=== PATIENT | female | born 1985 | race Caucasian/White ===

== ENCOUNTER 2020-09-18 12:26 | Inpatient (IN) | payer MEDICAID, SELFPAY ==
[2020-09-18] VITALS (38 sets, daily range): BP systolic 106–188; BP diastolic 63–88; PULSE 80–111; RESP 17–18; TEMP 36.4–37.1; O2SAT 87–100; BMI 37.0
[2020-09-18] MEDS: oxytocin 30 UNIT/500 ML BAG IV (13:57)
[2020-09-18] MEDS: dextrose 5%-lactated ringers 1,000 ML 125 ML IV (13:57)
[2020-09-18 14:19] LABS: Basophils # 0.1 10^3/uL (0.0-0.1); Basophils % 0.5 %; Eosinophils # 0.1 10^3/uL (0.0-0.8); Eosinophils % 1.1 %; Hematocrit 31.3 % (37.0-47.0); Hemoglobin 9.6 g/dL (11.5-15.3); Lymphocytes # 2.2 10^3/uL (0.8-4.8); Lymphocytes % 18.2 %; Mean Corpuscular HGB Conc 30.7 g/dL (30.0-36.0); Mean Corpuscular Hemoglobin 23.9 pg (28.0-34.0); Mean Corpuscular Volume 77.9 fL (81-99); Mean Platelet Volume 11.8 fL (7.4-10.4); Monocytes # 0.8 10^3/uL (0.2-0.9); Monocytes % 6.9 %; Neutrophils # 8.51 10^3/uL (1.8-7.7); Neutrophils % 71.9 %; Nucleated Red Blood Cells % 0 %; Platelet Count 244 10^3/cmm (130-400); Red Blood Count 4.02 10^6/uL (4.1-5.3); Red Cell Distribution Width 15.6 % (12.1-15.1); White Blood Count 11.8 10^3/uL (4.0-10.0)
[2020-09-18] MEDS: lactated ringers 1,000 ML 999 ML IV ×2 (22:05→23:19)
[2020-09-18] MEDS: ondansetron 2 mg/ML SDV 2 mL 4 MG IVP (23:00)
--- NOTE | 2020-09-18 23:48 | P.ANES_ITS ---
Anesthesia Procedures Procedure/Date: 09/18/20 Epidural: Time Out Performed: Yes Consents Signed: Procedure Consent Consent: from patient, risks and benefits reviewed and patient agrees to proceed Lumbar Level: L3-L4 Epidural position: sitting Epidural procedure: sterile prep of area, 1% lidocaine to numb the area, 18 g needle, negative for p aresthesia passed, test dose given, 1.5% xylocaine 1:200k epi (3 ml), 0.2% Ropivacaine bolus ml (5 ml), placed PCEA, no systemic response, sterile dressing applied, L.U.D. no apparent complications and 0.2% Ropiavacaine @ mls/hr (13) Additional Comments: r/b discussed. patient wishes to proceed. Tolerated well. Pain relief noted.
--- NOTE | 2020-09-18 23:51 | P.ANESASSM_ITS ---
Pre-Anesthetic Assessment Pre-Anesthetic Assessment: Height/Weight: Height 1.65 m Weight 101.151 kg Temp Pulse Resp BP Pulse Ox 98.6 F 84 18 122/74 98 09/18/20 23:08 09/18/20 23:49 09/18/20 18:42 09/18/20 23:49 09/18/20 23:48 Social: Social History: No alcohol Exam: Pre-Anes Outpt Exam: alert and oriented x 3 Airway: Submandibular: WNL Cervical ROM: WNL History/ROS: No significant complaints Anesthetic Plan: ASA status: 2 Anesthesia: Anesthesia Evaluation Other: labor epidural Risk of > 500 ml blood loss (7ml/kg in children): No Meds/Allergies Current Medications: Current Medications Generic Name Dose Route Start Last Admin Trade Name Freq PRN Reason Stop Dose Admin Dextrose/Lactated Ringer's 1,000 mls @ 125 m ls/hr 09/18/20 13:15 09/18/20 22:05 Dextrose 5%-Lact ated Ringers IV Infused .Q8H STAR Infusion Oxytocin 30 unit in 500 ml s @ 1 mls/hr 09/18/20 13:15 09/18/20 18:41 Pitocin IV 28 milliunit/min .Q24H STAR 28 mls/hr Titration Protocol 1 MILLIUNIT/MIN Ropivacaine 200 mg in 100 mls @ 13 mls/hr 09/18/20 22:15 09/18/20 23:43 Naropin Premix EPIDURAL 13 mls/hr .Q7H42M STAR Administration Lactated Ringer's 1,000 mls @ 999 m ls/hr 09/18/20 22:00 09/18/20 23:19 Lactated Ringers IV 999 mls/hr .Q1H1M PRN Administration See label comment s Ondansetron HCl 4 mg 09/18/20 13:12 09/18/20 23:00 Ondansetron 2 Mg /Ml Sdv 2 Ml IVP 4 mg Q4H PRN Administration NAUSEA AND VOMITI NG PFSH Anesthesia Female Reproductive History: : 5 Data Anesthesia CBC & Chem 7: 09/18/20 13:20 Other Labs: Laboratory Results - last 48 hr 09/18/20 13:20 WBC 11.8 H RBC 4.02 L Hgb 9.6 L Hct 31.3 L MCV 77.9 L MCH 23.9 L MCHC 30.7 RDW 15.6 H Plt Count 244 MPV 11.8 H Neut % (Auto) 71.9 Lymph % (Auto) 18.2 [place] % (Auto) 6.9 Eos % (Auto) 1.1 Baso % (Auto) 0.5 Neut # (Auto) 8.51 H Lymph # (Auto) 2.2 [place] # (Auto) 0.8 Eos # (Auto) 0.1 Baso # (Auto) 0.1 Nucleated RBC % (auto) 0 Nucleated RBCs # 0.0 Cardiac Studies: No Data to Display
--- NOTE | 2020-09-18 23:52 | P.ANES_ITS ---
Anesthesia Procedures Procedure/Date: 09/18/20 Other Information: lot [id number] exp 2021-02-07
--- NOTE | 2020-09-18 23:52 | ANES.PROC ---
Anesthesia Procedures Procedure/Date: 09/18/20 Other Information: lot [id number] exp 2021-02-07
[2020-09-19] VITALS (51 sets, daily range): BP systolic 94–141; BP diastolic 52–87; PULSE 70–116; RESP 18–20; TEMP 36.2–37; O2SAT 98–99
[2020-09-19] MEDS: dextrose 5%-lactated ringers 1,000 ML 125 ML IV (00:19)
--- NOTE | 2020-09-19 05:50 | PM.DELIVERY ---
Delivery Note: Date of delivery: September 19, 2020 Delivery: This is a 35-year-old at 40 weeks 3 days gestation who was admitted for an elective postdate induction. Her cervix was favorable and she was started on a Pitocin. She had spontaneous rupture of membranes with clear fluid. Rupture of membranes was approximately 10 hours prior to delivery. She received an epidural for pain management. She had a normal spontaneous vaginal delivery of a viable male infant weight 4135 g, 9 pounds 2 ounces over an intact perineum. The infant was suctioned at delivery and placed on the mother's chest. Apgars 9 and 9. The cord was clamped and cut. The placenta was delivered grossly intact and normal to inspection. There were no lacerations. EBL 225ml A&P Assessment and plan (1) Normal spontaneous vaginal delivery: Routine care Status: Acute Coding Level of Care Code Acute Batch Or Continuous Still Operator for Chg Fwd Diagnoses Normal spontaneous vaginal delivery O80
[2020-09-19] MEDS: oxytocin 30 UNIT/500 ML BAG 60 UNIT IV (05:53)
--- NOTE | 2020-09-19 06:00 | PC.NURSE ---
Pt breast feeding at this time asked typewriter operator automatic to wait until done to check bleeding.
[2020-09-19] MEDS: ibuprofen 800 mg tablet PO ×3 (09:43→20:09)
[2020-09-19] MEDS: lanolin oint 7 gm 1 APPLIC TOPICAL (10:02)
[2020-09-19] MEDS: prenatal vitamin Capsule 1 CAP PO (10:02)
[2020-09-19] MEDS: docusate sodium 100 mg Capsule PO ×2 (10:02→17:50)
[2020-09-19] MEDS: ketorolac 30 mg/mL INJ IM (20:08)
[2020-09-19 20:54] LABS: Hematocrit 29.3 % (37.0-47.0); Hemoglobin 8.7 g/dL (11.5-15.3); Mean Corpuscular HGB Conc 29.7 g/dL (30.0-36.0); Mean Corpuscular Hemoglobin 23.6 pg (28.0-34.0); Mean Corpuscular Volume 79.6 fL (81-99); Platelet Count 238 10^3/cmm (130-400); Red Blood Count 3.68 10^6/uL (4.1-5.3); Red Cell Distribution Width 15.7 % (12.1-15.1); White Blood Count 14.6 10^3/uL (4.0-10.0)
[2020-09-19] MEDS: HYDROcodone-acetaminophen 5-325 mg Tablet PO (22:21)
[2020-09-20 01:00] VITALS: BP 122/76; PULSE 79; RESP 16; TEMP 36.4; O2SAT 99
[2020-09-20 04:59] VITALS: BP 124/73; PULSE 77; TEMP 36.3
[2020-09-20 05:02] VITALS: RESP 16; TEMP 36.3
[2020-09-20 06:50] LABS: Basophils % 0.3 %; Eosinophils # 0.3 10^3/uL (0.0-0.8); Eosinophils % 2.4 %; Hematocrit 28.1 % (37.0-47.0); Hemoglobin 8.3 g/dL (11.5-15.3); Lymphocytes # 2.8 10^3/uL (0.8-4.8); Lymphocytes % 24.5 %; Mean Corpuscular HGB Conc 29.5 g/dL (30.0-36.0); Mean Corpuscular Hemoglobin 23.9 pg (28.0-34.0); Mean Corpuscular Volume 80.7 fL (81-99); Mean Platelet Volume 11.4 fL (7.4-10.4); Monocytes # 0.9 10^3/uL (0.2-0.9); Neutrophils # 7.17 10^3/uL (1.8-7.7); Neutrophils % 62.7 %; Nucleated Red Blood Cells % 0 %; Platelet Count 208 10^3/cmm (130-400); Red Blood Count 3.48 10^6/uL (4.1-5.3); Red Cell Distribution Width 15.8 % (12.1-15.1); White Blood Count 11.5 10^3/uL (4.0-10.0)
[2020-09-20 09:19] VITALS: BP 122/82; PULSE 89
[2020-09-20 09:20] VITALS: RESP 17; TEMP 36.7
[2020-09-20] MEDS: docusate sodium 100 mg Capsule PO (09:49)
[2020-09-20] MEDS: prenatal vitamin Capsule 1 CAP PO (09:49)
[2020-09-20] MEDS: ibuprofen 800 mg tablet PO (09:49)
--- NOTE | 2020-09-20 12:39 | PM.OBGYDC ---
Discharge Providers ETL INFORMATICA DEVELOPER Date of Admission: 09/18/20 12:26 Date of Discharge: 09/20/20 Attending Provider at Admission: Nathalia Casiano MD Attending Provider at Discharge: Nathalia Casiano MD Primary Care Provider: Marichuy Oconnell DO Diagnoses at Discharge Discharge Diagnosis (1) Normal spontaneous vaginal delivery: Status: Acute Reason for Visit Reason for Visit: INDUCTION OF LABOR Hospital Course Hospital Course This is a 35-year-old G5 now P3 who was admitted for a postdate induction. She had a normal spontaneous vaginal delivery of a viable male . She did well . She had average vaginal bleeding no abdominal tenderness and was comfortable with discharge home. Information Peripartum Data: Delivery Method: Vaginal Physical Exam Const: COMMON NORMALS: no acute distress GENERAL APPEARANCE: cooperative and comfortable Chest: COMMONS NORMALS: normal inspection of the chest Resp: COMMON NORMALS: normal respiratory effort and clear to auscultation bilaterally AUSCULTATION: clear to auscultation bilaterally Cardio: COMMON NORMALS: regular rate and regular rhythm RATE: regular rate RHYTHM: regular rhythm Extremity: COMMON NORMALS: no pedal edema Urinary Catheter Management^: Smalls: Cath Placed During This Visit: yes, but has since been removed by the nurse Reason for Continuing Indwelling Catheter: Decision to DC Catheter Urinary Catheter Date of Insertion: 09/19/20 Urinary Catheter Time of Insertion: 00:15 Date Urinary Catheter Removed: 09/19/20 Time Urinary Catheter Discontinued: 04:53 Discharge Data Data Completed and Pending: Labs from last 24 hours 09/20/20 09/19/20 06:30 20:15 WBC 11.5 H 14.6 H RBC 3.48 L 3.68 L Hgb 8.3 L 8.7 L Hct 28.1 L 29.3 L MCV 80.7 L 79.6 L MCH 23.9 L 23.6 L MCHC 29.5 L 29.7 L RDW 15.8 H 15.7 H Plt Count 208 238 MPV 11.4 H 12.0 H Neut % (Auto) 62.7 Lymph % (Auto) 24.5 [place] % (Auto) 8.0 Eos % (Auto) 2.4 Baso % (Auto) 0.3 Neut # (Auto) 7.17 Lymph # (Auto) 2.8 [place] # (Auto) 0.9 Eos # (Auto) 0.3 Baso # (Auto) 0.0 Nucleated RBC % (a uto) 0 Nucleated RBCs # 0.0 Vitals: Last Vital Signs Temp 97.3 F L 09/20/20 05:02 Pulse 89 09/20/20 09:19 Resp 16 09/20/20 05:02 BP 122/82 09/20/20 09:19 Pulse Ox 99 09/20/20 01:00 Discharge Plan Discharge Patient Disposition: Home Condition: Stable Prescriptions: No Action B Complete Tablet 1 tab PO DAILY RF: 0 Vitamin Tablet 1 tab PO DAILY RF: 0 DHA 200 mg Capsule 1 mg PO DAILY RF: 0 Vitamin D3 (calcium cit-phos) 1 tab PO DAILY RF: 0 Discharge Orders: Discharge Order (Routine); Ordered 09/20/20 Ordered By: Nathalia Casiano Referrals: Nathalia Casiano MD [Physician] - (Your 4 week check is scheduled for 10/18/2020 at 9:[address] Casiano.) Discharge Diet: Usual diet Discharge Activity: Limit activity as instructed Patient Instructions: , and Nipple Soreness (DC), and Your Diet (DC), Breast Care for the Breast Feeding Mother (DC), OB Discharge Report, OB Food/Drug Interaction Guide, Opioid Safety, OB Proud Parent Packet, OB Vaginal Deliveries Discharge Attestations ETL INFORMATICA DEVELOPER Time Spent in Discharge Care*: less than 30 min Coding Level of Care Code Acute Senior Cognos Developer for Chg Fwd Diagnoses Normal spontaneous vaginal delivery O80
[2020-09-20 14:00] VITALS: BP 122/82; PULSE 89; RESP 16
--- NOTE | 2020-09-21 17:10 | PC.NURSE ---
THIS CONTACT CENTER AGENT CALLED APPLE THIS AM BECAUSE SHE GOT DISCHARGED YESTERDAY WITHOUT SIGNING THE CERTIFICATE. THIS CONTACT CENTER AGENT WENT OVER AN D SPELLED OUT ALL NAMES AND SS. NICK AND [facility]PLE STATED THAT EVERYTHING WAS CORRECT EXCEPT THAT THEY HAD MEDICAID INSTEAD OF PRIVATE INSURANCE SO THIS WAS CORRECTED AND SENT IN TO STATE. [facility]PLE STATED THAT THEY WERE NOT PLANNING ON COMING BACK TO [place] FOR AT LEAST 2-3 WEEKS. SHE ASKED IF WE COULD SEND IT TO THEM AND I TOLD HER THAT WE COULD NOT DO THAT AND SHE WAS FINE WITH ME READING PAPERS OFF TO THEM. JOLANTA BRADSHAW AND YURI AMOS WERE BOTH MADE AWARE.
== END 2020-09-20 14:15 | disposition home or self-care (01) | DRG 807 ==
PROVIDERS: Admitting Provider Family Medicine; PCP Family Medicine; Visit Provider Family Medicine
DX: O48.0 Post-term pregnancy (principal); Z37.0 Single live birth; Z3A.40 40 weeks gestation of pregnancy; O75.89 Other specified complications of labor and delivery
CPT/HCPCS: 36415; 51702; 59025; 59409; 85025; 85027; 96372; 96374; J1885; J2405; J2795

== ENCOUNTER → 2022-08-21 10:00 | Outpatient (BNVA) | payer MEDICAID, SELFPAY | PROVIDERS: PCP Family Medicine; Visit Provider Nurse Practitioner Women's Health | DX: Z32.00 Encounter for pregnancy test, result unknown (principal) | CPT/HCPCS: 81000; 81025; 82105 ==

== ENCOUNTER → 2022-09-02 14:10 | Outpatient (BNVA) | payer MEDICAID, SELFPAY | PROVIDERS: PCP Family Medicine; Visit Provider Obstetrics & Gynecology | DX: Z36.3 Encounter for antenatal screening for malformations (principal) | CPT/HCPCS: 76805 ==

== ENCOUNTER → 2022-09-05 11:18 | Outpatient (BNVA) | payer MEDICAID, SELFPAY | PROVIDERS: PCP Family Medicine; Visit Provider Obstetrics & Gynecology | DX: O09.529 Supervision of elderly multigravida, unspecified trimester (principal); O09.30 Supervision of pregnancy with insufficient antenatal care, unspecified trimester; Z15.89 Genetic susceptibility to other disease; O09.292 Supervision of pregnancy with other poor reproductive or obstetric history, second trimester; Z3A.00 Weeks of gestation of pregnancy not specified | CPT/HCPCS: 81000 ==

== ENCOUNTER → 2022-10-01 13:28 | Outpatient (BNVA) | payer MEDICAID, SELFPAY | PROVIDERS: PCP Family Medicine; Visit Provider Obstetrics & Gynecology | DX: Z34.80 Encounter for supervision of other normal pregnancy, unspecified trimester (principal) | CPT/HCPCS: 76816; 81000; 82950 ==

== ENCOUNTER → 2022-10-24 13:45 | Outpatient (BNVA) | payer MEDICAID, SELFPAY | PROVIDERS: PCP Family Medicine; Visit Provider Obstetrics & Gynecology | DX: Z34.80 Encounter for supervision of other normal pregnancy, unspecified trimester (principal) | CPT/HCPCS: 81000; 85025 ==

== ENCOUNTER → 2022-10-31 11:17 | Outpatient (BNVA) | payer MEDICAID, SELFPAY | PROVIDERS: PCP Family Medicine; Visit Provider Obstetrics & Gynecology | DX: Z34.80 Encounter for supervision of other normal pregnancy, unspecified trimester (principal) | CPT/HCPCS: 81000 ==

== ENCOUNTER → 2022-11-14 10:56 | Outpatient (BNVA) | payer MEDICAID, SELFPAY | PROVIDERS: PCP Family Medicine; Visit Provider Obstetrics & Gynecology | DX: Z34.80 Encounter for supervision of other normal pregnancy, unspecified trimester (principal) | CPT/HCPCS: 81000 ==

== ENCOUNTER → 2022-11-28 08:53 | Outpatient (BNVA) | payer MEDICAID, SELFPAY | PROVIDERS: PCP Family Medicine; Visit Provider Obstetrics & Gynecology | DX: O09.529 Supervision of elderly multigravida, unspecified trimester (principal); O09.30 Supervision of pregnancy with insufficient antenatal care, unspecified trimester; Z15.89 Genetic susceptibility to other disease; O09.292 Supervision of pregnancy with other poor reproductive or obstetric history, second trimester; Z3A.32 32 weeks gestation of pregnancy | CPT/HCPCS: 81000; 87086 ==

== ENCOUNTER → 2022-12-05 14:35 | Outpatient (BNVA) | payer MEDICAID, SELFPAY | PROVIDERS: PCP Family Medicine; Visit Provider Obstetrics & Gynecology | DX: Z34.80 Encounter for supervision of other normal pregnancy, unspecified trimester (principal); R31.9 Hematuria, unspecified | CPT/HCPCS: 81000; 85025; 87086 ==

== ENCOUNTER → 2022-12-19 11:04 | Outpatient (BNVA) | payer MEDICAID, SELFPAY | PROVIDERS: PCP Family Medicine; Visit Provider Obstetrics & Gynecology | DX: Z34.80 Encounter for supervision of other normal pregnancy, unspecified trimester (principal) | CPT/HCPCS: 81000; 87081 ==

== ENCOUNTER → 2022-12-26 10:52 | Outpatient (BNVA) | payer MEDICAID, SELFPAY | PROVIDERS: PCP Family Medicine; Visit Provider Obstetrics & Gynecology | DX: Z34.80 Encounter for supervision of other normal pregnancy, unspecified trimester (principal) | CPT/HCPCS: 81000 ==

== ENCOUNTER → 2023-01-02 10:45 | Outpatient (BNVA) | payer MEDICAID, SELFPAY | PROVIDERS: PCP Family Medicine; Visit Provider Obstetrics & Gynecology | DX: Z34.80 Encounter for supervision of other normal pregnancy, unspecified trimester (principal) | CPT/HCPCS: 81000; 85025 ==

== ENCOUNTER → 2023-01-09 11:00 | Outpatient (BNVA) | payer MEDICAID, SELFPAY | PROVIDERS: PCP Family Medicine; Visit Provider Obstetrics & Gynecology | DX: Z34.80 Encounter for supervision of other normal pregnancy, unspecified trimester (principal) | CPT/HCPCS: 81000 ==

== ENCOUNTER → 2023-01-15 10:16 | Outpatient (BNVA) | payer MEDICAID, SELFPAY | PROVIDERS: PCP Family Medicine; Visit Provider Obstetrics & Gynecology | DX: Z34.80 Encounter for supervision of other normal pregnancy, unspecified trimester (principal) | CPT/HCPCS: 76819; 81000 ==

== ENCOUNTER 2023-01-21 12:58 | Inpatient (IN) | payer MEDICAID, SELFPAY ==
[2023-01-21] VITALS (25 sets, daily range): BP systolic 122–154; BP diastolic 77–98; PULSE 76–109; RESP 18; BMI 37.9
[2023-01-21 13:33] LABS: Basophils % 0.4 %; Eosinophils # 0.2 10^3/uL (0.0-0.8); Eosinophils % 1.8 %; Hematocrit 32.2 % (36-47); Lymphocytes % 19.3 %; Mean Corpuscular HGB Conc 31.1 g/dL (30-55); Mean Corpuscular Hemoglobin 23.9 pg (27-33); Monocytes # 0.6 10^3/uL (0.2-0.9); Monocytes % 6.3 %; Neutrophils # 7.23 10^3/uL (1.8-7.7); Neutrophils % 71.5 %; Nucleated Red Blood Cells % 0 %; Platelet Count 256 10^3/cmm (157-399); Red Blood Count 4.18 10^6/uL (3.85-5.65); Red Cell Distribution Width 15.6 % (12.1-15.1); White Blood Count 10.11 10^3/uL (3.29-11.43)
[2023-01-21] MEDS: miSOPROStol 100 mcg tablet 25 MCG VAGINAL ×2 (13:52→17:58)
--- NOTE | 2023-01-21 14:28 | PM.OPHPUD ---
Labor & Delivery H&P Update Date of Procedure: January 21, 2023 Date H&P Performed: 01/15/23 H&P update information: I have reviewed H&P completed within last 30 days, I have examined patient prior to procedure and No changes to prior documentation Admission Diagnosis: at 41 weeks Primary indication for procedure: at 41 weeks Planned procedure: induction at 41 weeks Related Problem List Diagnoses (1) History of macrosomia in in prior , currently in second trimester: (2) Late care affecting : (3) Elderly multigravida: (4) MTHFR gene mutation:
--- NOTE | 2023-01-21 17:44 | ANES.PREANE2 ---
Pre-Anesthetic Assessment Height/Weight: Height 1.65 m Weight 103.476 kg Pulse Resp BP O2 Del Method 87 18 122/77 Room Air 01/21/23 17:30 01/21/23 13:21 01/21/23 17:30 01/21/23 12:15 Epidural Familial anesthetic complications: None Was Beta Joel taken within 24 hours: N/A Was Clonidine taken within 24 hours: N/A Social No alcohol and No tobacco Exam alert, oriented x 3, clear to auscultation bilaterally and regular rate & rhythm Airway Submandibular: within normal limits Cervical ROM: within normal limits Mallampati: Class III Comments: Comments: Permanent bridge History/ROS No significant history except as noted and No significant complaints Pulmonary None reported CV/HEM MTHFR mutation None reported Hepatic None reported GI Gastroesophageal Reflux Disease Metabolic Morbid Obesity [facility] None reported Neuropsych None reported Anesthetic Plan ASA status: 2 Anesthesia: Anesthesia Evaluation, General and Regional (specify below) (Epidural) Risk of > 500 ml blood loss (7ml/kg in children): No Medications/Allergies Home Medications Medication Instructions Recorded Confirmed Last Taken Type Vitamin D3 (calcium cit-phos) 1 tab PO DAILY 09/18/20 01/15/23 09/17/20 20:00 History docosahexaenoic acid 200 mg capsule 1 mg PO DAILY 09/18/20 01/15/23 09/17/20 20:00 History vitamin B complex 1 tab PO DAILY 09/18/20 01/15/23 09/17/20 20:00 History coenzyme Q10 10 mg capsule (Co 10 mg PO DAILY 08/21/22 01/15/23 Unknown History Q-10) ferrous gluconate 240 mg (27 mg 240 mg PO DAILY 11/14/22 01/15/23 Unknown History iron) tablet (Ferate) Allergies Allergy/AdvReac Type Severity Reaction Status Date / Time No Known Allergies Allergy Verified 01/15/23 09:39 Current Medications Generic Name Dose Route Start Last Admin Trade Name Freq PRN Reason Stop Dose Admin Misoprostol 25 mcg 01/21/23 13:30 01/21/23 13:52 Misoprostol 100 Mcg Tablet VAGINAL 01/21/23 21:31 25 mcg Q4H STAR Administration PFSH Anesthesia Medical History MTHFR gene mutation No pertinent past medical history neghx: htn,dm,thyroid,dvt/pe PCP: Jinny Canela Surgical History H/O dilation and curettage (~2019) SAB at 6 weeks Family History Grandmother Diabetes Maternal Breast cancer Maternal - dx'd at 58 Grandfather Diabetes Paternal Stroke Paternal Mother Hypertension Heart disease Denies family history of Ovarian cancer Hyperlipidemia Thyroid condition Female Reproductive History : 6 Data Anesthesia 01/21/23 12:43 Short CBC 01/21/23 Range/Units 12:43 WBC 10.11 (3.29-11.43) 10^3/uL Hgb 10.00 L (11.27-16.99) g/dL Hct 32.2 L (36-47) % MCV 77.0 L (85-98) fl Plt Count 256 (157-399) 10^3/cmm Neut % (Auto) 71.5 % Neut # (Auto) 7.23 (1.8-7.7) 10^3/uL Cardiac Studies: No Data to Display
[2023-01-21] MEDS: dextrose 5%-lactated ringers 1,000 ML 125 ML IV (23:45)
[2023-01-21] MEDS: oxytocin 30 UNIT/500 ML BAG IV (23:45)
[2023-01-21] MEDS: lactated ringers 1,000 ML 999 ML IV (23:50)
[2023-01-22] VITALS (37 sets, daily range): BP systolic 116–176; BP diastolic 67–105; PULSE 71–103; RESP 16; TEMP 36.1–36.7; O2SAT 93–99
[2023-01-22] MEDS: lactated ringers 1,000 ML 999 ML IV (00:41)
--- NOTE | 2023-01-22 01:03 | ANES.PROC ---
Anesthesia Procedures Procedure/Date: 01/22/23 Epidural: Time Out Performed: Yes Consents Signed: Procedure Consent and NPO Consent Consent: requested by attending/covering physician, from patient, risks and benefits reviewed and patient agrees to proceed Lumbar Level: L3-L4 Epidural position: sitting Epidural procedure: sterile prep of area (betadine), 1% lidocaine to numb the area (3 mLs), neg for paresthesia, test dose given, 1.5% xylocaine 1:200k epi (3 mLs/ 2 mLs), 0.2% Ropivacaine bolus ml (5 mLs), placed PCEA, no systemic response, sterile dressing applied, L.U.D. no apparent complications and 0.2% Ropiavacaine @ mls/hr (13) Additional Comments: CHRIS 8cm, catheter placed to 13cm
--- NOTE | 2023-01-22 03:13 | PM.DELIVERY ---
Delivery Note: Date of delivery: January 22, 2023 Pre-delivery diagnoses: Intrauterine at 41 weeks. Late care. Elderly multigravid Obesity. anxiety/depression MTHFR mutation Post-delivery diagnoses: same Procedure: Spontaneous vaginal delivery Delivering Physician: Orlando Burch MD Pre-Delivery Course: Ms. Ayers is a 37 year old established patient with LMP of 04/08/2022, CYN of 01/13/2023 based off LMP and consistent with 10 week dating ultrasound placing her at 41 weeks 1 day who has been [place] [facility] [place]. CC: Admitted for induction HPI: Received appropriate care. Daily vitamins since start of care. labs have all been normal, including negative for HIV. She was found to negative for Group B Strep from screening at 36 weeks. She has gained approximately 17.4165 lbs throughout the . She denies a history of HTN during . Glucose tolerance screening for gestational diabetes was negative. Delivery: The patient was noted to be complete and pushing, so was placed in the dorsal lithotomy position, prepped and draped in the usual sterile fashion for a vaginal delivery. Pt. Noted to have epidural anesthesia. At 0252 the patient delivered a viable 41 weeks female infant weighing 3770 g with scores of 8 and 9 at one and five minutes, respectively. The vertex was delivered spontaneously over intact perineum. The patient was asked to push and the head delivered spontaneously in the SWETHA position, over an intact perineum. A nuchal cord was checked and 1 noted, and relieved around head as necessary. The anterior shoulder delivered easily and the posterior shoulder followed. The remainder of the infant was easily delivered and the oropharynx and nasopharynx was bulb suctioned. The infant was noted to have spontaneous cry and spontaneous movement of all four extremities. The cord was clamped x 2 and cut and noted to have 2 arteries and one vein. The was passed to the mother's abdomen where nursing personnel were in attendance. The placenta delivered intact spontaneously and the uterus was explored. 20 units of Pitocin was placed in the IV bag to firm the uterus. Examination of the cervix and vaginal vault did not reveal any lacerations. A vaginal pack was then placed. Examination of the perineum showed no laceration. The vaginal pack was then removed. The patient tolerated this procedure well, and recovered in L&D with her in their LDR room. All sponge and needle counts were correct. Post-Delivery Status: Good and stable History History History 6 Term 3 0 Miscarriages/Ectopic 2 Living Children 3 A&P Assessment and plan (1) Elderly multigravida: (2) Late care affecting : (3) MTHFR gene mutation: (4) Term delivered: Plan observation Coding Level of Care Code Acute Code for Chg Fwd Diagnoses Elderly multigravida O09.529 Late care affecting O09.30 MTHFR gene mutation Z15.89 Term delivered O80
[2023-01-22] MEDS: HYDROcodone-acetaminophen 5-325 mg Tablet PO ×3 (05:31→17:55)
[2023-01-22] MEDS: ibuprofen 800 mg tablet PO ×3 (08:16→21:41)
[2023-01-22] MEDS: docusate sodium 100 mg Capsule PO ×2 (08:16→17:55)
[2023-01-22] MEDS: prenatal vitamin Capsule 1 CAP PO (08:16)
--- NOTE | 2023-01-22 09:02 | ANE.PACU2 ---
Inpatient post-anesthesia follow up: Airway intact: Yes Vital signs: Temperature 97.5 F Pulse Rate 80 Respiratory Rate 16 Blood Pressure 124/80 Pulse Oximetry 98 Oxygen Delivery Me thod Room Air Oxygen Flow Rate Fraction of Inspir ed Oxygen Hydration adequate: Yes Nausea and vomiting: No Pain level: 2 Mental status: Baseline
[2023-01-22 15:36] LABS: Hematocrit 29.8 % (36-47); Mean Corpuscular HGB Conc 30.5 g/dL (30-55); Mean Corpuscular Hemoglobin 24.1 pg (27-33); Mean Corpuscular Volume 78.8 fl (85-98); Mean Platelet Volume 11.7 fL (7.4-10.4); Platelet Count 210 10^3/cmm (157-399); Red Blood Count 3.78 10^6/uL (3.85-5.65); Red Cell Distribution Width 15.6 % (12.1-15.1); White Blood Count 11.67 10^3/uL (3.29-11.43)
[2023-01-23] MEDS: HYDROcodone-acetaminophen 5-325 mg Tablet PO ×2 (05:18→11:24)
[2023-01-23 05:19] VITALS: BP 108/70; PULSE 71; RESP 16; TEMP 36.8
[2023-01-23] MEDS: prenatal vitamin Capsule 1 CAP PO (08:44)
[2023-01-23] MEDS: docusate sodium 100 mg Capsule PO (08:44)
[2023-01-23] MEDS: ibuprofen 800 mg tablet PO (08:44)
--- NOTE | 2023-01-23 10:23 | P.DS_ITS ---
Discharge Providers ELECTRICAL ACCESSORIES II ASSEMBLER Date of Admission: 01/21/23 12:58 Date of Discharge: 01/23/23 Attending Provider at Admission: Orlando Burch MD Attending Provider at Discharge: Orlando Burch MD Primary Care Provider: Marichuy Oconnell DO Diagnoses at Discharge Discharge Diagnosis (1) Elderly multigravida: Status: Acute (2) Late care affecting : Status: Acute (3) MTHFR gene mutation: Status: Acute (4) Term delivered: Status: Acute Reason for Visit Reason for Visit: IOL Hospital Course Hospital Course Mrs. Ayers 37 y/o female with full term at 41 weeks came in for a planned induction. She progressed to have a spontaneous vaginal delivery without complications. overnight observation was uneventful. She is afebrile and hemodynamically stable. She was counseled regarding Pelvic rest for 6 weeks (no sex, no tampons, no vaginal douches). Return to the emergency room if any fever, increased bleeding or pain. Information Peripartum Data: Infant Delivery Method: Vaginal Physical Exam Narrative: GA; alert and oriented x 3 HEENT: normal Breasts: engorged Nipples - skin intact Lungs; clear to auscultation Heart: regular rhythm, no murmurs. Abd: Appropriately tender. BS+. Uterine fundus below umbilicus. No Fundal Tenderness. Perineum: normal lochia. Extremities: no edema, no cyanosis, no tenderness. Urinary Catheter Management: Smalls: Cath Placed During This Visit: yes, but has since been removed by the nurse Reason for Continuing Indwelling Catheter: Decision to DC Catheter Urinary Catheter Date of Insertion: 01/22/23 Urinary Catheter Time of Insertion: 01:45 Date Urinary Catheter Removed: 01/22/23 Time Urinary Catheter Discontinued: 02:50 History History History 6 Term 3 0 Miscarriages/Ectopic 2 Living Children 3 Discharge Data Studies Completed and Pending Laboratory Results WBC 11.67 10^3/uL (3.29-11.43) H 01/22/23 15:20 RBC 3.78 10^6/uL (3.85-5.65) L 01/22/23 15:20 Hgb 9.10 g/dL (11.27-16.99) L 01/22/23 15:20 Hct 29.8 % (36-47) L 01/22/23 15:20 MCV 78.8 fl (85-98) L 01/22/23 15:20 MCH 24.1 pg (27-33) L 01/22/23 15:20 MCHC 30.5 g/dL (30-55) 01/22/23 15:20 RDW 15.6 % (12.1-15.1) H 01/22/23 15:20 Plt Count 210 10^3/cmm (157-399) 01/22/23 15:20 MPV 11.7 fL (7.4-10.4) H 01/22/23 15:20 Neut % (Auto) 71.5 % 01/21/23 12:43 Lymph % (Auto) 19.3 % 01/21/23 12:43 [place] % (Auto) 6.3 % 01/21/23 12:43 Eos % (Auto) 1.8 % 01/21/23 12:43 Baso % (Auto) 0.4 % 01/21/23 12:43 Neut # (Auto) 7.23 10^3/uL (1.8-7.7) 01/21/23 12:43 Lymph # (Auto) 2.0 10^3/uL (0.8-4.8) 01/21/23 12:43 [place] # (Auto) 0.6 10^3/uL (0.2-0.9) 01/21/23 12:43 Eos # (Auto) 0.2 10^3/uL (0.0-0.8) 01/21/23 12:43 Baso # (Auto) 0.0 10^3/uL (0.0-0.1) 01/21/23 12:43 Nucleated RBC % (auto) 0 % 01/21/23 12:43 Nucleated RBCs # 0.0 /100WBC 01/21/23 12:43 Vitals Last Vital Signs Temp 98.2 F 01/23/23 05:19 Pulse 71 01/23/23 05:19 Resp 16 01/23/23 05:19 BP 108/70 01/23/23 05:19 Pulse Ox 98 01/22/23 00:58 O2 Del Method Room Air 01/23/23 05:19 Discharge Plan Discharge Patient Disposition: Home Condition: Stable Prescriptions: New ferrous sulfate [Iron (ferrous sulfate)] 325 mg (65 mg iron) tablet 325 mg PO BID Qty: 60 0RF acetaminophen 325 mg capsule 325 mg PO Q4H PRN (Reason: fever or pain) Qty: 60 0RF docusate sodium [Colace] 100 mg capsule 100 mg PO BID Qty: 60 0RF ibuprofen 800 mg tablet 800 mg PO TID PRN (Reason: pain) Qty: 60 0RF Continued 28-800 mg-mcg Tablet 1 tab PO DAILY Discharge Orders: Discharge Order (Routine); Ordered 01/23/23 Ordered By: Orlando Burch Referrals: Orlando Burch MD [Physician] - 03/05/23 2:30 pm Discharge Diet: Regular Discharge Activity: Limit activity as instructed Patient Instructions: Depression (DC), Bleeding (DC), Preeclampsia and Eclampsia After Delivery (GEN), Hemorrhage (DC), OB Discharge Report, OB Food/Drug Interaction Guide, Opioid Safety, OB Home Care, OB Vaginal Deliveries - [facility] Activity Restrictions/Additional Instructions: 1. Please call [facility] on next working day to make your appointment in 6 weeks. 2. Please stay home until you come back to the clinic on first post- hospatilization check up. 3. Please follow instructions on your medications CAREFULLY. 4. If you have abdominal incision, do not cover it unless dressing is necessary because of drainage. OK to shower, but avoid bath. Leave steri-strips until they fall off. If they are still on one week after surgery, you may remove them. 5. If you had vaginal surgery or vaginal repair, Dr. Burch may instruct you to take SITZ bath. 6. Yellow, blood tinged odorous vaginal discharge is usually normal after hysterectomy or vaginal surgeries. 7. No SEXUAL INTERCOURSE, tampons, or douches until you are completely released from the post-operative care. 8. Avoid constipation by eating right and maybe using some Metamucil or Milk of Magnesia. 9. All prescription refills are given during the working hours. Please do no wait till it runs out. Call the clinic at [phone] before your medication runs out. The clinic will get in touch with your doctor to prescribe medications if necessary. 10. Please remain within 40 mile radius from our hospital because emergencies do happen now and then during the post-operative period. 11. If you have stairs at home, take one step at a time slowly and minimize the number of trips. It helps to stay in one floor for the next few days. No lifting except what you can lift by one hand until you are released from the post-operative care. 12. Driving is discouraged until you are well healed. It may be 3-4 weeks before you feel strong enough to drive. You should be able to turn and look through the rear window without pain and you should be able to push the brake pedal very hard without pain before you drive. No fast rules, but SAFETY should be your primary concern. DO NOT drive if you are on sedating medications such as narcotics. 13. Call the clinic (during working hours) to make urgent appointment or go to the Emergency room, if any of the following occurs: i. Vaginal bleeding becomes heavy, more than a period. ii. Incision becomes red and sore, or drains pus. iii. Your TEMPERATURE is over 100.4F or you have chill. iv. IV site becomes red and swollen (a little ``knot?? is usually OK) v. Persistent nausea and vomiting vi. Persistent constipation or diarrhea vii. Rash or allergic reaction to medications. Discharge Attestations ELECTRICAL ACCESSORIES II ASSEMBLER Time Spent in Discharge Care*: greater than 30 min Coding Level of Care Code Acute Code for Chg Fwd Diagnoses Elderly multigravida O09.529 Late care affecting O09.30 MTHFR gene mutation Z15.89 Term delivered O80
[2023-01-23 11:45] VITALS: BP 140/89; PULSE 82; RESP 18; TEMP 36.5; O2SAT 98
== END 2023-01-23 11:59 | disposition home or self-care (01) | DRG 806 ==
LOC: OPOB 12:58 → OBGYN 12:58
PROVIDERS: Admitting Provider Obstetrics & Gynecology; PCP Family Medicine; Visit Provider Obstetrics & Gynecology
DX: O48.0 Post-term pregnancy (principal); E72.12 Methylenetetrahydrofolate reductase deficiency; Z37.0 Single live birth; Z3A.41 41 weeks gestation of pregnancy; O99.214 Obesity complicating childbirth; E66.9 Obesity, unspecified; O99.284 Endocrine, nutritional and metabolic diseases complicating childbirth; O69.81X0 Labor and delivery complicated by cord around neck, without compression, not applicable or unspecified
CPT/HCPCS: 36415; 59025; 59409; 85025; 85027; J2590; J7120; J7121